=== PATIENT | female | born 2000 | race Two or more races ===

== ENCOUNTER 2021-01-26 20:45 | Emergency (ER) | payer OTHER ==
[~2021-01-26] VITALS: Ht 175.3 cm; Wt 55.0 kg
[2021-01-26 20:48] VITALS: BP 100/67
--- NOTE | 2021-01-26 21:12 | PHYS DOC ---
General Adult EDM: Chief Complaint: SEIZURE HPI: HPI: Patient is a 20 year old 20-year-old female patient with history of psychogenic nonepileptic seizures, epilepsy, who presents to the ED today reporting she had a seizure at home. Patient stated it was witnessed by the family. Seizure lasted 5 minutes. She states she is on the Briviact for epilepsy. She states she has been told she needs to follow-up with a therapist for her psychogenic nonepileptic seizures. She states she has not been able to get an appointment because they are booked up but plans to follow-up with one. She states she follows up with a neurologist at who has told her there is nothing they can do for her she needs to continue taking her epilepsy medicine and see a therapist. She states she would like to be discharged because she knows there is nothing we can do in the ED for her condition. Review of Systems: Review of Systems: Constitutional: Denies fever or chills. [] Eyes: Denies change in visual acuity. [] HENT: Denies nasal congestion or sore throat. [] Respiratory: Denies cough or shortness of breath. [] Cardiovascular: Denies chest pain or edema. [] GI: Denies abdominal pain, nausea, vomiting, bloody stools or diarrhea. [] : Denies dysuria. [] Musculoskeletal: Denies back pain or joint pain. [] Integument: Denies rash. [] Neurologic: Reports seizure. Denies headache, focal weakness or sensory changes. [] Psychiatric: Denies depression or anxiety. [] Heart Score: C/O Chest Pain: N/A Risk Factors: Risk Factors: DM, Current or recent (<one month) smoker, HTN, HLP, family history of CAD, obesity. Risk Scores: Score 0 - 3: 2.5% MACE over next 6 weeks - Discharge Home Score 4 - 6: 20.3% MACE over next 6 weeks - Admit for Clinical Observation Score 7 - 10: 72.7% MACE over next 6 weeks - Early Invasive Strategies Allergies: Allergies: Allergies Coded Allergies Type Severity Reaction Last Updated Verified lamotrigine Allergy Intermediate 01/26/21 Yes zonisamide Allergy Intermediate 01/26/21 Yes Physical Exam: PE: Constitutional: Well developed, well nourished, no acute distress, non-toxic appearance. [] HENT: Normocephalic, atraumatic, bilateral external ears normal, oropharynx moist, no oral exudates, nose normal. [] Eyes: PERRLA, EOMI, conjunctiva normal, no discharge. [] Neck: Normal range of motion, no tenderness, supple, no stridor. [] Cardiovascular:Heart rate regular rhythm, no murmur [] Lungs & Thorax: Bilateral breath sounds clear to auscultation [] Abdomen: Bowel sounds normal, soft, no tenderness, no masses, no pulsatile masses. [] Skin: Warm, dry, no erythema, no rash. [] Back: No tenderness, no CVA tenderness. [] Extremities: No tenderness, no cyanosis, no clubbing, ROM intact, no edema. [] Neurologic: Alert and oriented X 3, normal motor function, normal sensory function, no focal deficits noted. Cranial nerves II through XII intact Psychologic: Affect normal, judgement normal, mood normal. [] EKG: EKG: [] Radiology/Procedures: Radiology/Procedures: [] Course & Med Decision Making: Course & Med Decision Making Pertinent Labs and Imaging studies reviewed. (See chart for details) This a 20-year-old female patient with history of psychogenic nonepileptic seizures, epilepsy, on Briviact presenting today stating she had a seizure for 5 minutes. Patient's physical exam is completely benign. She is alert oriented has no tongue biting, no signs of lip bitting or urination on self. She is requesting to be discharged, she states there is nothing to do for her seizures in the emergency room. She states she has a therapist to follow-up with for psychogenic nonepileptic seizures as well as neurologist at [facility] for epilepsy. She was discharged to home. Jacky Disclaimer: Jacky Disclaimer: This electronic medical record was generated, in whole or in part, using a voice recognition dictation system. Departure Departure Impression: Primary Impression: Psychogenic nonepileptic seizure Additional Impression: Seizure Disposition: 01 HOME / SELF CARE / HOMELESS Condition: STABLE Patient Instructions: Seizure, Adult Additional Instructions: Please follow-up with your neurologist and therapist as soon as you can FIOR HUSTON APRN Jan 26, 2021 21:12
== END 2021-01-26 21:19 | disposition home or self-care (01) ==
LOC: ER 20:45
DX: G40.409 Other generalized epilepsy and epileptic syndromes, not intractable, without status epilepticus (principal); Z88.8 Allergy status to other drugs, medicaments and biological substances
CPT/HCPCS: 99283